=== PATIENT | male | born 1955 | race Caucasian/White ===

== ENCOUNTER 2023-08-10 16:10 | Emergency (ER) | payer OTHER ==
[2023-08-10] MEDS ORDERED: Sodium Chloride 0.9% 10 ML Syringe FLUSH PRN ×2 (16:17→18:53)
[2023-08-10 16:43] LABS: BASOPHILS ABSOLUTE AUTO 0.02 K/uL (0.02-0.10); BASOPHILS PERCENT AUTO 0.2 % (0.0-0.5); EOSINOPHILS ABSOLUTE AUTO 0.27 K/uL (0.04-0.40); EOSINOPHILS PERCENT AUTO 2.7 % (1.0-5.0); HEMATOCRIT 40.1 % (40.0-54.0); HEMOGLOBIN 14.3 g/dL (13.0-18.0); LYMPHOCYTES ABSOLUTE AUTO 2.53 K/uL (1.50-4.00); LYMPHOCYTES PERCENT AUTO 25.7 % (20.0-40.0); MEAN CORPUSCULAR HEMOGLOBIN 29.5 pg (27.0-32.0); MEAN CORPUSCULAR HGB CONC 35.7 g/dL (31.0-35.0); MEAN CORPUSCULAR VOLUME 83 fL (76-96); MEAN PLATELET VOLUME 9.5 fL (6.0-10.0); MONOCYTES ABSOLUTE AUTO 0.86 K/uL (0.20-0.80); MONOCYTES PERCENT AUTO 8.7 % (3.0-10.0); NEUTROPHILS ABSOLUTE AUTO 6.16 K/uL (2.00-7.50); NEUTROPHILS PERCENT AUTO 62.7 % (45.0-70.0); PLATELET COUNT,PLT 214 K/uL (150-400); RED BLOOD CELL COUNT 4.84 M/uL (4.50-6.50); RED CELL DISTRIBUTION WIDTH 13.6 % (11.0-16.0); WHITE BLOOD CELL COUNT,WBC 9.8 K/uL (4.0-11.0)
[2023-08-10 16:58] LABS: PROTHROMBIN TIME 10.1 sec (9.0-11.5)
[2023-08-10 16:59] LABS: A/G RATIO 1.1 (0.8-2.0); ALBUMIN 3.5 g/dL (3.4-5.0); ANION GAP 16.4 mmol/L (5.0-15.0); BILIRUBIN TOTAL 0.3 mg/dL (0.0-1.0); BUN/CREATININE RATIO 21.2 (6-25); CALCIUM 8.8 mg/dL (8.5-10.1); CARBON DIOXIDE,CO2 24.2 mmol/L (21.0-32.0); CREATININE 1.18 mg/dL (0.70-1.30); EST CRCL DRUG DOSING (CG) 61.01 mL/min; POTASSIUM,K 3.6 mmol/L (3.5-5.1); PROTEIN TOTAL,TP 6.6 g/dL (6.4-8.2)
[2023-08-10] MEDS: Sodium Chloride 0.9% 1,000 ML IV SCH (17:06)
[2023-08-10] MEDS: Ondansetron 4 MG/2 ML SDV IVPUSH ONE (17:40)
[2023-08-10] MEDS: HYDROmorphone 2 MG/ML Syringe IVPUSH ONE (17:42)
[2023-08-10] MEDS: HYDROmorphone 2 MG/ML Syringe ONE (17:49)
[2023-08-11] MEDS: Ondansetron 4 MG/2 ML SDV ONE (09:21)
== END 2023-08-10 19:40 ==
LOC: LB.ED 16:10
DX: S02.91XA Unspecified fracture of skull, initial encounter for closed fracture (principal); S06.6X0A Traumatic subarachnoid hemorrhage without loss of consciousness, initial encounter; I10 Essential (primary) hypertension; E78.00 Pure hypercholesterolemia, unspecified; Z90.49 Acquired absence of other specified parts of digestive tract; Z79.899 Other long term (current) drug therapy; W01.198A Fall on same level from slipping, tripping and stumbling with subsequent striking against other object, initial encounter
CPT/HCPCS: 36415; 70450; 72125; 80053; 85025; 85610; 85730; 96361; 96374; 96375; 99285; J1170; J2405; J7030; A0425; A0429